=== PATIENT | female | born 1995 | race Caucasian/White ===

== ENCOUNTER 2021-02-25 08:33 | Day surgery (SDC) | payer OTHER ==
[~2021-02-25] VITALS: Ht 160 cm; Wt 54.4 kg
[~2021-02-25 08:33] MED LIST: AMPICILLIN SOD/SULBACTAM SOD 3 GM in D5W MINI-BAG PLUS 100 ML IV ONE; LIDOCAINE 1% MDV 20ML VIAL SQ PRN; LR 1,000 ML IV ONE; OMEP40CA4 PO; PROAAER10 INH; UNIS25TA3 PO; dexameTHASONE 4 MG/ML 1ML VIAL (J1100 PER 1MG) IV ONE
[2021-02-25] MEDS ORDERED: MIDAZOLAM INJ 2MG/2ML VIAL (J2250 PER 1MG) As Ordered ONE (10:52)
[2021-02-25] MEDS ORDERED: propofoL 200 MG/20 ML VIAL As Ordered ONE (10:53)
[2021-02-25] MEDS ORDERED: ONDANSETRON 4MG/2ML VIAL As Ordered ONE ×2 (10:53→13:09)
[2021-02-25] MEDS ORDERED: ROCURONIUM BROMIDE 50 MG/5 ML VIAL As Ordered ONE (10:53)
[2021-02-25] MEDS ORDERED: fentaNYL 100 MCG/2 ML INJECTION (J3010) As Ordered ONE ×2 (10:53→13:06)
[2021-02-25] MEDS ORDERED: LIDOCAINE 2% 100MG/5ML SDV (FOR ANES.) As Ordered ONE (10:53)
[2021-02-25] MEDS ORDERED: dexameTHASONE 4 MG/ML 1ML VIAL (J1100 PER 1MG) As Ordered ONE (10:53)
[2021-02-25] MEDS ORDERED: LIDOCAINE 2% W/ EPINEPHRINE 1.7 ML DENTAL INJ As Ordered ONE (11:46)
[2021-02-25] MEDS ORDERED: CHLORHEXIDINE GLUCONATE 0.12 % 15ML UDC (PERIDEX ORAL RINSE) As Ordered ONE (11:46)
[2021-02-25] MEDS ORDERED: OXYMETAZOLINE 0.05% NASAL SPRAY (AFRIN) As Ordered ONE (11:50)
[2021-02-25] MEDS ORDERED: METOCLOPRAMIDE INJ 10MG/2ML VIAL (J2765 PER 1) As Ordered ONE (12:20)
[2021-02-25] MEDS ORDERED: KETOROLAC 60MG 2ML VIAL As Ordered ONE (12:24)
[2021-02-25] MEDS ORDERED: SUGAMMADEX SODIUM 500 MG/5 ML VIAL (BRIDION) As Ordered ONE (12:24)
[2021-02-25] MEDS ORDERED: ACETAMINOPHEN 1000MG 100ML IV BTL (OFIRMEV) (J0131 PER 10MG) As Ordered ONE (12:24)
[2021-02-25] MEDS: fentaNYL 100 MCG/2 ML INJECTION (J3010) IV PRN ×4 (13:08→13:42)
[2021-02-25] MEDS ORDERED: ESMOLOL INJ 100MG/10ML VIAL As Ordered ONE (13:16)
[2021-02-25] MEDS ORDERED: ONDANSETRON 4MG/2ML VIAL IV PRN (13:40)
[2021-02-25] MEDS ORDERED: LR 1,000 ML IV SCH (13:40)
[2021-02-25] MEDS: oxyCODONE 5MG TAB PO PRN ×2 (13:48→14:26)
--- NOTE | 2021-02-25 14:12 | RO ---
OPERATIVE NOTE DATE OF OPERATION: 02/25/2021 PREOPERATIVE DIAGNOSES: 1. Failed office based IV conscious sedation. 2. Severe dental anxiety. 3. Grossly decayed and symptomatic #18 as well as erupted and malpositioned and hopeless and symptomatic teeth #1, 16, 17, and 18. POSTOPERATIVE DIAGNOSES: Status post: 1. Failed office based IV conscious sedation. 2. Severe dental anxiety. 3. Grossly decayed and symptomatic #18 as well as erupted and malpositioned and hopeless and symptomatic teeth #1, 16, 17, and 18. PROCEDURE PERFORMED: Extraction of the aforementioned teeth. SURGEON: Karsten Hammer DMD, MD [employer] MACHINE OPERATOR: ANESTHESIA: General endotracheal anesthesia via nasal EMILY. SPECIMEN: Teeth for gross only. INDICATIONS FOR SURGERY: Kira is a pleasant 26-year-old female referred to my office for evaluation for five teeth extractions. She has history of failed IV sedation in the dentist office and therefore upon speaking with Kira we discussed repeating office sedation with the possibility of another failed sedation outcome versus general anesthesia in an operating room setting. She elected to have the latter in an operating room setting under general anesthesia. All the risks, benefits and alternatives were explained to the patient in detail. Informed consent was obtained and signed. History and physical is in the patient's chart. DESCRIPTION OF PROCEDURE: The patient was taken back to the operating room. She was laid supine on the operating room table. Ulnar nerve protectors were placed. Noninvasive cardiac monitors were applied. At that point, the patient underwent general anesthesia and was intubated with a nasal EMILY. She was prepped and draped in the usual sterile fashion. A time out procedure was performed to identify the patient, the procedure and any other precautions. Preoperative antibiotics and steroids were administered in the IV. Moist throat pack was inserted. 8 carpules of 2% Lidocaine with 1:100,000 Epinephrine were administered as local infiltrations and blocks. A full thickness flap was released at sites #1, 16, 17, 18, and 32. A small buccal trough was made in each tooth area; teeth were luxated and delivered with ease. All sockets were curetted and irrigated. No sinus exposure was noted. Inferior alveolar nerve was not noted. Flaps were closed individually with 3-0 chromic sutures. At this point, once all the teeth were removed, the oral cavity was irrigated and suctioned. The throat pack was removed. She was awakened from general anesthesia and taken back to the PACU. ESTIMATED BLOOD LOSS: 10 mL. DRAINS: No drains placed.
[2021-02-25 14:50] VITALS: BP 125/83
== END 2021-02-25 15:05 | disposition home or self-care (01) ==
LOC: M SDC 08:33 → EDUNIT# 12:30 → M SDC 15:05
PROVIDERS: ATTEND Dentist
DX: K02.9 Dental caries, unspecified (principal); J45.909 Unspecified asthma, uncomplicated; K21.9 Gastro-esophageal reflux disease without esophagitis; F41.9 Anxiety disorder, unspecified; Z79.51 Long term (current) use of inhaled steroids; Z79.899 Other long term (current) drug therapy
CPT/HCPCS: 88300; D7210; D9223; J0131; J1100; J1885; J2250; J2405; J2765; J3010